=== PATIENT | male | born 1990 | race Caucasian/White ===

== ENCOUNTER 2018-05-15 21:01 | Emergency (ER) | payer SELFPAY ==
[2018-05-15 21:11] VITALS: BP 130/76
[2018-05-15] MEDS ORDERED: CLINDAMYCIN HCL 150 MG CAPSULE PO ONE (21:39)
[2018-05-15] MEDS ORDERED: OXYCODONE-ACETAMINOPHEN 5-325 MG TABLET PO ONE (21:39)
[2018-05-15] MEDS ORDERED: IBUPROFEN 800 MG TABLET PO ONE (21:39)
[2018-05-15] MEDS ORDERED: HYDROCODONE/ACETAMINOPHEN 5-325 MG (6 TAB/ER DISP) PO PRN (21:40)
--- NOTE | 2018-05-15 21:45 | ER Document Report ---
ED General - General Chief Complaint: Toothache Stated Complaint: TOOTHACHE Time Seen by Provider: 05/15/18 21:27 Mode of Arrival: Ambulatory Information source: Patient Notes: Patient with complaints of dental pain to right upper jaw for several weeks. Was scheduled for dentist appointment today but had to reschedule. Patient reports he was already taking pencillin two weeks ago with no change. TRAVEL OUTSIDE OF THE [place] IN LAST 30 DAYS: No - Related Data Allergies/Adverse Reactions: No Known Drug Allergies Allergy (Verified 05/15/18 21:02) Past Medical History - General Information source: Patient - Social History Smoking Status: Current Every Day Smoker Frequency of alcohol use: None Drug Abuse: None Family History: Reviewed & Not Pertinent - Medical History Medical History: Negative Surgical Hx: Negative - Immunizations Hx Diphtheria, Pertussis, Tetanus Vaccination: Yes Review of Systems - Review of Systems Constitutional: No symptoms reported EENT: See HPI Cardiovascular: No symptoms reported Respiratory: No symptoms reported Gastrointestinal: No symptoms reported Genitourinary: No symptoms reported Male Genitourinary: No symptoms reported Musculoskeletal: No symptoms reported Skin: No symptoms reported Hematologic/Lymphatic: No symptoms reported Neurological/Psychological: No symptoms reported Physical Exam - Vital signs Vitals: Temp Pulse Resp BP Pulse Ox 99.9 F 88 18 130/76 H 100 05/15/18 21:09 05/15/18 21:09 05/15/18 21:09 05/15/18 21:09 05/15/18 21:09 - Notes Notes: PHYSICAL EXAMINATION: GENERAL: Well-appearing, well-nourished and in no acute distress. HEAD: Atraumatic, normocephalic. EYES: Pupils equal round and reactive to light, extraocular movements intact, sclera anicteric, conjunctiva are normal. ENT: nares patent, oropharynx clear without exudates. Moist mucous membranes. Multiple dental carries noted to right upper and lower teeth, poor dentition. NECK: Normal range of motion, supple without lymphadenopathy LUNGS: Breath sounds clear to auscultation bilaterally and equal. No wheezes rales or rhonchi. HEART: Regular rate and rhythm without murmurs PSYCH: Normal mood, normal affect. SKIN: Warm, Dry, normal turgor, no rashes or lesions noted. Course - Re-evaluation Re-evalutation: No evidence of any drainable abscess, will place in clindamycin in preparation of planned dental extractions. - Vital Signs Vital signs: Temp Pulse Resp BP Pulse Ox 99.9 F 88 18 130/76 H 100 05/15/18 21:09 05/15/18 21:05/15/18 21:05/15/18 21:05/15/18 21:09 Discharge - Discharge Clinical Impression: Pain due to dental caries Condition: Stable Disposition: HOME, SELF-CARE Additional Instructions: You have been seen for dental pain. It is very important that you follow-up with a dentist for definitive care. Please return if you develop fever greater than 101, swelling in your face, vomiting, difficulty breathing or swallowing, or any other symptoms that are concerning to you. For pain you should take ibuprofen 800 mg every 8 hours as needed. [facility] in [facility] to see if they can get you in for an appointment at [phone]. Prescriptions: Clindamycin HCl 300 mg PO TID #30 capsule Ibuprofen 800 mg PO Q8 #30 tablet
== END 2018-05-15 21:58 | disposition home or self-care (01) ==
LOC: ER 21:01
DX: K02.9 Dental caries, unspecified (principal); K08.89 Other specified disorders of teeth and supporting structures; R68.84 Jaw pain; F17.200 Nicotine dependence, unspecified, uncomplicated
CPT/HCPCS: 99282